=== PATIENT | male | born 1980 | race Caucasian/White ===

== ENCOUNTER 2018-01-05 02:33 | Emergency (ER) | payer OTHER ==
[~2018-01-05] VITALS: Ht 185.4 cm; Wt 79.4 kg
[~2018-01-05 02:33] MED LIST: AMOXICILLIN 50500 MG PO; FLEXERIL PO; HYDROCODON-ACE1 EA11 PO; HYDROCODONE-AP1 EAC6 PO; HYDROCODONE-APA1 TA1; IBUPROFEN 600600 M1 PO; IBUPROFEN 800800 M1 PO; LIDOCAINE VISC100 M1 SWISH&SPIT; NORCO 5-325 TA1 EACH PO; PENICILLIN V P500 MG PO; PENICILLIN VK250 MG PO; ULTRAM 50MG TAB50 MG PO
[2018-01-05] MEDS ORDERED: VICODIN 5-3001 EACH PO (02:45)
[2018-01-05 03:32] LABS: ABSOLUTE BASOPHILS 0.1 thou/uL (0.0-0.2); ABSOLUTE EOSINOPHILS 0.2 thou/uL (0.0-0.7); ABSOLUTE LYMPHOCYTES 3.6 thou/uL (0.8-5.3); ABSOLUTE MONOCYTES 0.6 thou/uL (0.0-1.2); ABSOLUTE NEUTROPHILS 4.1 thou/uL (1.6-8.1); BASOPHILS 1.1 %; EOSINOPHILS 2.2 %; HEMATOCRIT 43.9 % (42.0-52.0); HEMOGLOBIN 14.7 gm/dL (14.0-18.0); LYMPHOCYTES 41.5 %; MCH 31.3 pg (26.0-34.0); MCHC 33.5 g/dL (28.0-37.0); MCV 93.5 fL (80.0-100.0); MONOCYTES 7.5 %; NUCLEATED RBCS 0 /100WBC; PLATELET COUNT* 248 thou/uL (150-400); POLYS 47.7 %; WBC 8.6 thou/uL (4.0-11.0)
[2018-01-05 03:43] LABS: CALCIUM 9.2 mg/dL (8.5-10.1); CREATININE 0.9 mg/dL (0.6-1.3); POTASSIUM 3.4 mmol/L (3.5-5.1)
[2018-01-05 03:47] LABS: TOTAL BILIRUBIN 0.2 mg/dL (<0.1-1.0); TOTAL PROTEIN 7.8 g/dL (6.4-8.2)
[2018-01-05 05:00] VITALS: BP 107/70
[2018-01-05 05:02] LABS: URINE BILIRUBIN NEGATIVE (Negative); URINE BLOOD NEGATIVE (Negative); URINE CLARITY CLEAR; URINE COLOR YELLOW; URINE GLUCOSE-RANDOM NEGATIVE (Negative); URINE KETONES NEGATIVE (Negative); URINE LEUKOCYTES-REFLEX NEGATIVE (Negative); URINE NITRITE-REFLEX NEGATIVE (Negative); URINE PROTEIN NEGATIVE (Negative); URINE UROBILINOGEN 0.2 E.U./dl (0.2-1.0)
[2018-01-05 05:06] LABS: AMP/METHAMP Negative (Negative); BARBITURATES Negative (Negative); BENZODIAZEPINES Negative (Negative); COCAINE Negative (Negative); METHADONE POSITIVE (Negative); OPIATES POSITIVE (Negative); PCP Negative (Negative); THC POSITIVE (Negative)
--- NOTE | 2018-01-05 14:09 | EKG ---
[place] [address] ELECTROCARDIOGRAM REPORT Name: AYDIN BOYER [id number] Admission: 01/05/18 Attend Phys: Discharge: 01/05/18 Date of : 76 Report #: [id number] THIS REPORT FOR: //name// [facility] ED Test Date: 2018-01-05 Test Time: 02:41:43 Pat Name: AYDIN BOYER Department: Room: Gender: M [employer]: REYES : 1980 Requested By: Sylvia Pa Order Number: [id number] Art MD: Franklyn Rojas Measurements Intervals [place] Rate: 99 P: 68 GA: 131 QRS: 66 QRSD: 126 T: 7 QT: 347 QTc: 446 Interpretive Statements Sinus rhythm Probable left ventricular hypertrophy No previous ECG available for comparison Electronically Signed On 01-05-2018 14:09:38 CDT by Franklyn Rojas [email or web address] <ELECTRONICALLY SIGNED> By: Franklyn Rojas MD, [facility] 01/05/18 1409 [id number] Franklyn Rojas MD, FACC /EPI
== END 2018-01-05 05:00 | disposition home or self-care (01) ==
LOC: M.ERS 02:33
PROVIDERS: Personal Emergency Response Attendant
DX: R42 Dizziness and giddiness (principal)

== ENCOUNTER 2019-03-14 01:56 | Emergency (ER) | payer OTHER ==
[~2019-03-14] VITALS: Ht 185.4 cm; Wt 86.2 kg
[~2019-03-14 01:56] MED LIST changes: +VICODIN 5-3001 EACH PO
[2019-03-14] MEDS ORDERED: KEFLEX500 M1 PO (03:21)
[2019-03-14] MEDS ORDERED: IBUPROFEN 800800 MG PO (03:21)
[2019-03-14] MEDS ORDERED: NORCO 5-325 TA1 EAC1 PO (03:21)
[2019-03-14 03:40] VITALS: BP 123/77
== END 2019-03-14 03:41 | disposition home or self-care (01) ==
LOC: M.ERS 01:56
DX: H60.02 Abscess of left external ear (principal)